=== PATIENT | male | born 2000 | race American Indian/Alaskan Native ===

== ENCOUNTER 2021-10-07 19:35 | Emergency (ER) | payer OTHER ==
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
[2021-10-08] MEDS ORDERED: ACETAMINOPHEN 500 MG TAB PO ONE (00:55)
[2021-10-08] MEDS ORDERED: IBUPROFEN 600 MG TAB PO ONE (00:55)
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
[2021-10-08 01:54] VITALS: BP 117/74
== END 2021-10-08 02:10 | disposition home or self-care (01) ==
LOC: ED 19:35
DX: S43.402A Unspecified sprain of left shoulder joint, initial encounter (principal); S46.912A Strain of unspecified muscle, fascia and tendon at shoulder and upper arm level, left arm, initial encounter; V89.2XXA Person injured in unspecified motor-vehicle accident, traffic, initial encounter; Y93.89 Activity, other specified; Y92.89 Other specified places as the place of occurrence of the external cause; Y99.8 Other external cause status
CPT/HCPCS: 99283